=== PATIENT | male | born 1950 | race Caucasian/White ===

== ENCOUNTER → 2016-12-22 | Outpatient (CLI) | payer MEDICARE ==
[2016-12-22 12:23] LABS: BUN 22 mg/dL (7-18)
[2016-12-22 12:32] LABS: GFR (ESTIMATED) 67 ML/MIN (>60)
== END ==
LOC: LAB 09:58
PROVIDERS: Family Medicine
DX: M54.16 Radiculopathy, lumbar region (principal)

== ENCOUNTER → 2016-12-24 | Outpatient (CLI) | payer MEDICARE ==
--- NOTE | 2016-12-25 08:05 | RADIOLOGY REPORT PS360 ---
MRI-L-SPINE W/WO, MRI-3D RENDERING/MYELOGRAM HISTORY: Left-sided low back pain. Left leg pain and numbness. Prior back surgery LUMBAR RADICULOPATHY ORDERING PHYSICIAN: Divine Bolden MD PATIENT AGE: 66 years COMPARISON: Radiograph 08/26/2008 TECHNIQUE: Standard multiplanar multiecho sequences are performed without and with gadolinium enhancement . 3-D MIP and myelographic images are also rendered and reviewed FINDINGS: There is normal alignment. The spinal cord ends at the T12-L1 level. T11-T12 and T12-L1 demonstrates minimal endplate irregularity. L1-L2: Unremarkable. L2-L3: There is mild concentric bulging disc. L3-L4: Mild concentric bulging disc with a broad-based left paracentral and foraminal area of disc protrusion/disc osteophyte complex causing moderate narrowing of the left L3-L4 foramen and is abutting the anterior aspect of the left L4 nerve root.. There is a 14 mm T1 and T2 hyperintensity rounded area in the right lateral posterior aspect of the L4 vertebral body consistent with a small hemangioma. L4-5: Moderate to severe degenerative disc disease with a broad-based right paracentral foraminal and right lateral disc protrusion/disc osteophyte complex causing moderate to severe right-sided lateral recess and moderate right-sided foraminal narrowing abutting the anterior aspect of the right S1 nerve root. There is canal stenosis at this level. Moderate bilateral facet and ligamentum flavum hypertrophy contributing to the canal stenosis along with bilateral lateral recess narrowing. L5-S1: Degenerative disc disease with bulging disc and small central disc protrusion versus slightly eccentric toward the right along with some facet hypertrophy and moderate right lateral recess narrowing and mild bilateral foraminal narrowing. There is a laminotomy defect on the left this region. No obvious epidural fibrosis. No enhancing lesions are evident. No enhancing epidural fibrosis. IMPRESSION: 1. Bulging disc at L3-L4 with a broad-based left paracentral and foraminal area of disc protrusion/disc osteophyte complex causing moderate narrowing of the left L3-L4 foramen and is abutting the anterior aspect of the left L4 nerve root.. 2. Moderate to severe degenerative disc disease at L4-5 with a broad-based right paracentral foraminal and right lateral disc protrusion/disc osteophyte complex causing moderate to severe right-sided lateral recess and moderate right-sided foraminal narrowing abutting the anterior aspect of the right S1 nerve root. There is canal stenosis at this level. Moderate bilateral facet and ligamentum flavum hypertrophy previous to the canal stenosis along with bilateral lateral recess narrowing. 3. Degenerative disc disease at L5-S1 with bulging disc and small central disc protrusion versus slightly eccentric toward the right along with some facet hypertrophy and moderate right lateral recess narrowing and mild bilateral foraminal narrowing. There is a laminotomy defect on the left this region. No obvious epidural fibrosis.
== END ==
LOC: RAD 10:17
DX: M54.16 Radiculopathy, lumbar region (principal)
CPT/HCPCS: A9576